=== PATIENT | female | born 1945 | race Caucasian/White ===

== ENCOUNTER 2017-12-10 11:02 | Emergency (ER) | payer MEDICARE ==
[~2017-12-10] VITALS: Ht 170.2 cm; Wt 100.6 kg
[~2017-12-10 11:02] MED LIST: GLUCTAB PO; LISI-357 PO; PRAV10 PO; PRIL20CA PO
[2017-12-10 11:07] VITALS: BP 190/79; PULSE 74; RESP 18; TEMP 97.6; O2SAT 99
[2017-12-10] MEDS ORDERED: LISI-515 PO (11:19)
[2017-12-10] MEDS ORDERED: METF500T PO (11:19)
--- NOTE | 2017-12-10 11:43 | PD ---
HPI Chief Complaint: Skin Problem Time Seen by Provider: 11:18 Travel History International Travel<30 days: No Contact w/Intl Traveler<30days: No Traveled to known affect area: No History of Present Illness HPI Patient comes emergency department complaining of pain over her right anterior thigh. Patient states she started having some itching on her leg last night and today when she woke she had pain. Patient describes pain as throbbing-like in nature and swelling by her spider vein right anterior thigh. Reports pain radiates distally. Patient reports taking aspirin for this. Not touching improves the pain. Pain is worse with walking. Denies any fevers, trauma, weight loss, or previous episodes like this. Severity mild. PFSH Past Medical History High Cholesterol: Yes Diabetes: Yes Patient Takes Glucophage: Yes Hypertension: Yes Tetanus Vaccination: > 5 Years Influenza Vaccination: No ?: Not Past Surgical History Appendectomy: Yes Cholecystectomy: Yes Hysterectomy: Yes Tonsillectomy: Yes Social History Alcohol Use: No Tobacco Use: No Substance Use: No Allergies-Medications (Allergen,Severity, Reaction): Coded Allergies: No Known Allergies (Unverified Adverse Reaction, Unknown, 12/10/17) Reported Meds & Prescriptions Reported Meds & Active Scripts Active Reported Metformin (Metformin HCl) 500 Mg Tab 500 Mg PO DAILY With a meal Lisinopril 20 Mg Tab 25 Mg PO DAILY Review of Systems Except as stated in HPI: all other systems reviewed are Neg Physical Exam Narrative GENERAL: Well-developed, overly nourished, in no acute distress, and non-ill appearing. SKIN: Focused skin assessment warm and dry. Patient has a tender what appears to be superficial thrombophlebitis of the right anterior thigh. It is afebrile minimally erythematous and without crepitus. No fluctuation or drainage. HEAD: Atraumatic. Normocephalic. EYES: Pupils equal and round. EOMI. No scleral icterus. No injection or drainage. ENT: No nasal bleeding or discharge. Mucous membranes pink and moist. NECK: Trachea midline. No nuclear rigidity. RESPIRATORY: No accessory muscle use. No respiratory distress. MUSCULOSKELETAL: No obvious deformities. No clubbing. No cyanosis. No edema. Full range of motion. NEUROLOGICAL: Awake and alert. No obvious cranial nerve deficits. Motor grossly within normal limits. Normal speech. PSYCHIATRIC: Appropriate mood and affect; insight and judgment normal. Data Data Last Documented VS Vital Signs Date Time Temp Pulse Resp B/P (MAP) Pulse Ox O2 Delivery O2 Flow Rate FiO2 12/10/17 11:07 97.6 74 18 190/79 (116) 99 Orders Orders Us Leg Venous Doppler (12/10/17 11:37) Ed Discharge Order (12/10/17 12:43) MDM Medical Decision Making Medical Screen Exam Complete: Yes Emergency Medical Condition: Yes Interpretation(s) Last Impressions Lower Extremity Ultrasound 12/10/17 1137 Signed Impressions: Service Date/Time: Sunday, December 10, 2017 12:14 - CONCLUSION: 1. No evidence of deep venous thrombosis. 2. Superficial venous thrombosis in the greater saphenous vein. Mynor Callejas MD Differential Diagnosis Superficial thrombophlebitis, DVT, abscess, cellulitis Narrative Course Patient in no obvious distress upon re-evaluation. All pertinent Radiology result(s) discussed with patient. Discussed patient with Dr. Linares, who saw and evaluated the patient and is in agreement plan of care and disposition. Any questions/concerns in reference to patient diagnosis/condition discussed and clarified prior to patient's discharge. Reinforced sheer importance of close follow up with patient's primary physician or primary care clinic. Instructed patient to return to ED immediately, if symptoms return/worsen. Patient showed understanding of above instructions. Further instructions and recommendations were detailed in discharge paperwork. Patient ambulated without difficulty out of ED at discharge. Diagnosis Primary Impression: Superficial thrombophlebitis Qualified Codes: I80.01 - Phlebitis and thrombophlebitis of superficial vessels of right lower extremity Patient Instructions: General Instructions, Superficial Thrombophlebitis (DC) Additional Instructions: Follow-up with your primary care physician this week for reevaluation. Apply warm compresses to affected area multiple times throughout the day. Take full- strength aspirin daily. Return to the emergency department if symptoms get worse. Disposition: 01 DISCHARGE HOME Condition: Stable Adair Marti December 10, 2017 11:43
--- NOTE | 2017-12-10 12:36 | RADRPT ---
EXAM DATE/TIME: 12/10/2017 12:14 [facility] COMPARISON: No previous studies available for comparison. INDICATIONS : Right leg swelling. MEDICAL HISTORY : Hypercholesterolemia. Hypertension. Diabetes. SURGICAL HISTORY : Tonsillectomy. Appendectomy. Cholecystectomy. Hysterectomy. ENCOUNTER: Initial ACUITY: 2 day PAIN SCORE: 6/10 LOCATION: Right lower extremity TECHNIQUE: Venous ultrasound of the leg was performed from the inguinal ligament to the proximal calf. Real-marlon e, color Doppler and spectral tracing, compression and augmentation techniques were used. FINDINGS: There is occlusive and nonocclusive superficial venous thrombosis in the right greater saphenous vein extending from the proximal to distal thigh. The deep venous system is patent. The common femoral, s uperficial femoral and popliteal vein are fully compressible and demonstrated normal venous waveform with normal augmentation response. The calf veins are patent as well. CONCLUSION: 1. No evidence of deep venous thrombosis. 2. Superficial venous thrombosis in the greater saphenous vein. Mynor Callejas MD on December 10, 2017 at 12:34 Board Certified Radiologist. This report was verified electronically.
--- NOTE | 2017-12-10 12:40 | PD ---
Data Data Last Documented VS Vital Signs Date Time Temp Pulse Resp B/P (MAP) Pulse Ox O2 Delivery O2 Flow Rate FiO2 12/10/17 11:07 97.6 74 18 190/79 (116) 99 Orders Orders Us Leg Venous Doppler (12/10/17 11:37) MDM Supervised Visit with REMY: Yes Narrative Course The history, exam, and medical decision-making in the associated midlevel provider note were completed with my assistance. I reviewed and agree with the findings presented. I attest that I had a [id number] encounter with the patient on the same day, and personally performed and documented my assessment and findings in the medical record. *My assessment and Findings: This is a 72-year-old female who presents to the emergency department with redness and swelling on her upper right thigh. Clinically she appears to have a superficial thrombophlebitis. An ultrasound was obtained to rule out contiguous deep venous thrombosis which was reassuring. This confirmed superficial thrombophlebitis. Patient will be discharged with conservative therapy. Sabine Linares MD December 10, 2017 12:40
== END 2017-12-10 13:10 | disposition home or self-care (01) ==
LOC: PHEFT 11:02
DX: I80.01 Phlebitis and thrombophlebitis of superficial vessels of right lower extremity (principal); E78.00 Pure hypercholesterolemia, unspecified; E11.9 Type 2 diabetes mellitus without complications; I10 Essential (primary) hypertension
CPT/HCPCS: 93971